=== PATIENT | male | born 1955 | race Two or more races ===

== ENCOUNTER 2024-04-05 08:31 | Outpatient (CLI) | payer MEDICARE, MEDICAID | END 2024-04-05 23:59 | disposition home or self-care (01) | LOC: VAS 08:31 | PROVIDERS: ATTEND Student in an Organized Health Care Education/Training Program | DX: Z13.6 Encounter for screening for cardiovascular disorders (principal); R18.8 Other ascites | CPT/HCPCS: 93978 ==